=== PATIENT | female | born 1995 | race Caucasian/White ===

== ENCOUNTER 2018-12-28 17:57 | Inpatient (IN) | payer OTHER ==
[~2018-12-28] VITALS: Ht 167.6 cm; Wt 70.8 kg
[2018-12-28] MEDS ORDERED: PRENATAL TABLE1 EACH PO (18:59)
[2018-12-28] MEDS ORDERED: DIALYVITE 800-1 EACH PO (18:59)
== END 2018-12-30 11:12 | disposition home or self-care (01) | DRG 833 ==
LOC: EDBD 17:57 → OBS/DEL 17:57 → LDR 12-29 19:14 → OBS/DEL 12-29 19:14 → LDR 12-30 11:12
PROVIDERS: ADMIT Obstetrics & Gynecology
PROC: BY4CZZZ Ultrasonography of Second Trimester, Single Fetus (ICD-10-PCS; principal; 2018-12-29)
PROC: 4A1HXCZ Monitoring of Products of Conception, Cardiac Rate, External Approach (ICD-10-PCS; 2018-12-29)
DX: O26.852 Spotting complicating pregnancy, second trimester (principal); O34.211 Maternal care for low transverse scar from previous cesarean delivery; O23.32 Infections of other parts of urinary tract in pregnancy, second trimester; O65.5 Obstructed labor due to abnormality of maternal pelvic organs